=== PATIENT | male | born 1990 | race Caucasian/White ===

== ENCOUNTER 2019-11-12 09:28 | Day surgery (SDC) | payer BC ==
[~2019-11-12] VITALS: Ht 185.4 cm; Wt 80.6 kg
[~2019-11-12 09:28] MED LIST: HYDMOR2 PO
--- NOTE | 2019-11-12 10:16 | NUR ---
History, Chart, Medications and Allergies reviewed before start of procedure. Lungs clear T/O to Auscultation. Patient confirms NPO status and agrees with scheduled surgery. Pre-Op teaching done. Pt verbalizes understanding. Patient reports completing Chlorhexadine shower X2 prior to admission to hospital.
--- NOTE | 2019-11-12 13:09 | NUR ---
11/12/19 1309 Nori Grimes VERIFICATIONS: EDIT CHART.
--- NOTE | 2019-11-12 13:16 | NUR ---
@1300 RECIEVED PATIENT FROM SIM[facility] POOLE RN RECIEVED REPORT. VSS PATIENT EATING PUDDING AND DRINKING WATER WANTING TO BE DISCHARGED. DISCHARGE INSTRUCTIONS GONE OVER WITH AND PATIENT DRESSED AND DISCHARGED AT THIS TIME 1318 WITH ALL BELONGINGS AND DISCHARGE INSTRUCTIONS.
== END 2019-11-12 22:55 | disposition home or self-care (01) ==
LOC: ORSCMMR 09:28 → ORD 10:15 → ORSCMMR 22:55
PROVIDERS: Surgery
PROC: 0JBL0ZZ Excision of Right Upper Leg Subcutaneous Tissue and Fascia, Open Approach (ICD-10-PCS; principal; 2019-11-12 10:15)
DX: M79.9 Soft tissue disorder, unspecified (principal); D17.79 Benign lipomatous neoplasm of other sites
CPT/HCPCS: 88304; J0690; J1100; J1885; J2250; J2405; J2704; J3010; J7120